=== PATIENT | male | born 1955 | race Caucasian/White ===

== ENCOUNTER 2023-02-24 15:08 | Emergency (ER) | payer BC, OTHER ==
[~2023-02-24] VITALS: Ht 182.9 cm; Wt 116.6 kg
[2023-02-24 15:10] VITALS: BP_SYST 136; PULSE 70; RESP 18; TEMP 97.8; O2SAT 97
--- NOTE | 2023-02-24 15:45 | NUR ---
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 HX OF BILATERAL KNEE REPLACEMENTS, HTN, DM AND SLEEP APNEA. A/OX4, VITALS ARE STABLE.
--- NOTE | 2023-02-24 15:50 | NUR ---
MD DR HOLMAN AT BEDSIDE
[2023-02-24] MEDS ORDERED: MORPHINE 4 MG INJ. 4 MG/ML VIAL IM ONE (16:00)
[2023-02-24] MEDS ORDERED: KETAMINE HCL IN 0.9 % NACL 50 MG/5 ML SYRINGE IVP ONE (16:00)
[2023-02-24] MEDS ORDERED: KETAMINE 30 MG/3 ML SYRINGE IM ONE (16:00)
--- NOTE | 2023-02-24 16:11 | NUR ---
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 HX OF BILATERAL KNEE REPLACEMENTS, HTN, DM AND SLEEP APNEA. A/OX4, VITALS ARE STABLE.
[2023-02-24] MEDS ORDERED: PRED50TA PO ×3 (17:02→17:18)
[2023-02-24] MEDS ORDERED: TRAM50TA2 PO ×3 (17:02→17:18)
--- NOTE | 2023-02-24 17:40 | NUR ---
Patient given written and verbal discharge instructions and verbalizes understanding. ER MD DR HOLMAN discussed with patient the results and treatment provided. Patient in stable condition. ID arm band removed. Rx of TRAMADOL 50MG given. Patient educated on pain management and to follow up with PMD. Pain Scale . Opportunity for questions provided and answered. Medication side effect fact sheet provided.
[2023-02-24 17:42] VITALS: BP_SYST 146; PULSE 67; RESP 18; TEMP 97.3; O2SAT 97
== END 2023-02-24 17:40 | disposition home or self-care (01) ==
LOC: SED 15:08
DX: M54.31 Sciatica, right side (principal); M79.661 Pain in right lower leg; Z79.899 Other long term (current) drug therapy
CPT/HCPCS: 99283; 72100; 96372; J2270